=== PATIENT | female | born 1965 | race Two or more races ===

== ENCOUNTER 2017-12-10 12:18 | Emergency (ER) | payer OTHER ==
[~2017-12-10] VITALS: Ht 162.6 cm; Wt 69.4 kg
[~2017-12-10 12:18] MED LIST: KETO10TA2 PO; LEVSIN/SL0.125 MG SL; LEVSIN0.125 MG; ORPH100T PO; PEPCID40 MG PO; SYNTHROID88 MCG; TOPROL XL100 MG; TOPROL XL50 MG
== END 2017-12-10 16:04 | disposition home or self-care (01) ==
LOC: ER 12:18
DX: R10.11 Right upper quadrant pain (principal); M54.89 Other dorsalgia

== ENCOUNTER 2023-01-06 12:16 | Emergency (ER) | payer OTHER ==
[~2023-01-06] VITALS: Ht 162.6 cm; Wt 73.5 kg
[2023-01-06] MEDS ORDERED: LIPITOR20 MG (12:44)
[2023-01-06] MEDS ORDERED: NORFLEX100MG PO (13:39)
[2023-01-06] MEDS ORDERED: CLEOCIN HCL300 MG PO (13:39)
[2023-01-06] MEDS ORDERED: KETO10TA2 PO (13:39)
== END 2023-01-06 13:47 | disposition home or self-care (01) ==
LOC: ER 12:16
DX: K08.89 Other specified disorders of teeth and supporting structures (principal); Z88.8 Allergy status to other drugs, medicaments and biological substances; Z91.013 Allergy to seafood
CPT/HCPCS: 96372; 99283; J1885; J2360

== ENCOUNTER 2023-12-13 13:37 | Emergency (ER) | payer OTHER ==
[~2023-12-13] VITALS: Ht 162.6 cm; Wt 66.7 kg
[~2023-12-13 13:37] MED LIST changes: +CLEOCIN HCL300 MG PO; +LIPITOR20 MG; +NORFLEX100MG PO
[2023-12-13 14:57] LABS: HEMATOCRIT 36.6 % (36.0-45.00); HEMOGLOBIN 12.3 g/dL (12.0-15.00); MEAN CELL VOLUME 85.1 fL (80.00-100.00); MEAN CORPUSCULAR HEMOGLOBIN 28.6 pg (27.00-32.0); MEAN CORPUSCULAR HGB CONC 33.6 g/dl (32.0-36.0); PLATELET COUNT 234 K/uL (150-450); RED CELL DISTRIBUTION WIDTH 13.9 % (11.5-14.5)
[2023-12-13 15:37] LABS: URINE APPEARANCE Clear; URINE BILIRRUBIN Negative (NEGATIVE); URINE BLOOD Negative; URINE COLOR Yellow; URINE GLUCOSE Negative (NEGATIVE); URINE LEUKOCYTE Trace; URINE NITRATE Negative; URINE PROTEIN Negative (NEGATIVE)
[2023-12-13 15:40] LABS: URINE BACTERIA 590.9 uL (0.0-1933); URINE EPITHELIAL CELLS 16.2 uL (0.0-38.8); URINE RBC 3.3 uL (0.0-20.8); URINE WBC 17.7 uL (0.0-23.2)
[2023-12-13 15:49] LABS: ALBUMIN 3.6 gm/dL (3.4-5.0); BILIRUBIN TOTAL 0.59 mg/dL (0.3-1.2); CREATININE SERUM 0.71 mg/dL (0.55-1.02); FREE TRIODOTIRONINE 1.82 pg/ml (2.18-3.98); GFR 84.85; GLOBULINA 3.8 G/DL (2.4-3.5); POTASSIUM 3.75 mEq/L (3.5-5.1); T4 TOTAL 10.53 UG/DL (4.8-13.9); TOTAL PROTEIN 7.4 gm/dL (6.4-8.2)
== END 2023-12-13 16:27 | disposition home or self-care (01) ==
LOC: ER 13:38
PROVIDERS: General Practice
DX: R53.1 Weakness (principal); Z88.8 Allergy status to other drugs, medicaments and biological substances

== ENCOUNTER 2024-06-07 10:20 | Emergency (ER) | payer OTHER ==
[~2024-06-07] VITALS: Ht 160 cm; Wt 63.5 kg
[2024-06-07 10:47] VITALS: BP 127/79; O2SAT 100
[2024-06-07] MEDS ORDERED: DEXAMETHASONE SODIUM PHOSPHATE 4 MG/ML VIAL IM ONE (12:30)
[2024-06-07] MEDS ORDERED: KETOROLAC TROMETHAMINE 60 MG VIAL IM ONE ×2 (12:30→12:34)
[2024-06-07] MEDS ORDERED: DEXAMETHASONE SODIUM PHOSPHATE 4 MG/ML VIAL ONE (12:34)
[2024-06-07] MEDS ORDERED: IBU600 MG PO (13:31)
== END 2024-06-07 14:00 | disposition home or self-care (01) ==
LOC: ER 10:22
DX: R53.81 Other malaise (principal); M54.2 Cervicalgia; I10 Essential (primary) hypertension; E03.8 Other specified hypothyroidism; Z88.6 Allergy status to analgesic agent; Z91.013 Allergy to seafood

== ENCOUNTER 2024-07-01 23:22 | Emergency (ER) | payer OTHER ==
[~2024-07-01] VITALS: Ht 162.6 cm; Wt 63.5 kg
[~2024-07-01 23:22] MED LIST changes: +IBU600 MG PO
[2024-07-01] MEDS ORDERED: NORVASC2.5 MG PO (23:54)
[2024-07-02] MEDS ORDERED: ASPIRIN 325 MG TABLET.EC PO STA (01:11)
[2024-07-02] MEDS ORDERED: 0.9 % SODIUM CHLORIDE 1,000 ML IV ONE (01:15)
[2024-07-02] MEDS ORDERED: ASPIRIN 325 MG TABLET.EC PO ONE (01:22)
[2024-07-02 01:23] LABS: HEMATOCRIT 37.1 % (36.0-45.00); HEMOGLOBIN 12.3 g/dL (12.0-15.00); MEAN CELL VOLUME 82.9 fL (80.00-100.00); MEAN CORPUSCULAR HEMOGLOBIN 27.4 pg (27.00-32.0); MEAN CORPUSCULAR HGB CONC 33.1 g/dl (32.0-36.0); PLATELET COUNT 197 K/uL (150-450); RED BLOOD COUNT 4.47 M/uL (4.00-6.00); RED CELL DISTRIBUTION WIDTH 14.5 % (11.5-14.5)
[2024-07-02 01:40] LABS: INR 0.99; PARTIAL THROMBOPLASTIN TIME 24.7 SECONDS (22.0-34.0); PROTHROMBIN TIME 10.8 SECONDS (9.0-11.5)
[2024-07-02 01:45] LABS: ALBUMIN 3.6 gm/dL (3.4-5.0); BILIRUBIN TOTAL 0.41 mg/dL (0.3-1.2); CREATININE SERUM 0.69 mg/dL (0.55-1.02); GFR 87.38; GLOBULINA 3.7 G/DL (2.4-3.5); POTASSIUM 4.22 mEq/L (3.5-5.1); TOTAL PROTEIN 7.3 gm/dL (6.4-8.2)
[2024-07-02 02:41] LABS: URINE APPEARANCE Clear; URINE BILIRRUBIN Negative (NEGATIVE); URINE BLOOD Negative; URINE COLOR Yellow; URINE GLUCOSE Negative (NEGATIVE); URINE KETONE Negative (NEGATIVE); URINE LEUKOCYTE Trace; URINE NITRATE Negative; URINE PROTEIN Negative (NEGATIVE); URINE UROBILINOGEN 0.2 E.U./dl
[2024-07-02 02:46] LABS: URINE BACTERIA 67.3 uL (0.0-1933); URINE RBC 3.6 uL (0.0-20.8); URINE WBC 3.6 uL (0.0-23.2)
== END 2024-07-02 06:59 ==
LOC: ER 23:22
PROVIDERS: General Practice
DX: R00.2 Palpitations (principal); I10 Essential (primary) hypertension; Z88.6 Allergy status to analgesic agent; Z91.013 Allergy to seafood
CPT/HCPCS: 36415; 71045; 93005; 93041; 96365; 96366; 99283; J7030

== ENCOUNTER 2024-07-30 14:20 | Emergency (ER) | payer OTHER ==
[~2024-07-30] VITALS: Ht 162.6 cm; Wt 62.6 kg
[~2024-07-30 14:20] MED LIST changes: +NORVASC2.5 MG PO
[2024-07-30] MEDS ORDERED: METOCLOPRAMIDE HCL 5 MG/ML VIAL IM STA (17:49)
[2024-07-30] MEDS ORDERED: METOCLOPRAMIDE HCL 5 MG/ML VIAL ONE (17:53)
== END 2024-07-30 18:01 | disposition home or self-care (01) ==
LOC: ER 14:22
DX: R11.0 Nausea (principal); R12 Heartburn; Z91.013 Allergy to seafood; Z88.8 Allergy status to other drugs, medicaments and biological substances
CPT/HCPCS: 96372; 99282; J2765

== ENCOUNTER 2024-10-02 19:33 | Emergency (ER) | payer OTHER ==
[~2024-10-02] VITALS: Ht 162.6 cm; Wt 64.4 kg
[2024-10-02 20:18] VITALS: BP 146/83; O2SAT 99
[2024-10-02] MEDS ORDERED: KETOROLAC TROMETHAMINE 60 MG VIAL IM ONE ×2 (21:57→22:00)
[2024-10-02] MEDS ORDERED: DICLOFENAC SODI75 MG PO (23:11)
== END 2024-10-02 23:18 | disposition home or self-care (01) ==
LOC: ER 19:33
DX: R07.89 Other chest pain (principal); Z88.8 Allergy status to other drugs, medicaments and biological substances; Z91.013 Allergy to seafood; I10 Essential (primary) hypertension
CPT/HCPCS: 71046; 96372; 99283; J1885

== ENCOUNTER 2025-06-08 10:50 | Emergency (ER) | payer OTHER ==
[~2025-06-08] VITALS: Ht 162.6 cm; Wt 66.2 kg
[~2025-06-08 10:50] MED LIST changes: +DICLOFENAC SODI75 MG PO
[2025-06-08 13:01] VITALS: O2SAT 100
[2025-06-08] MEDS ORDERED: FAMOTIDINE/PF 20 MG/2 ML VIAL IV PUSH ONE (16:00)
[2025-06-08] MEDS ORDERED: CLOPIDOGREL BISULFATE 75 MG TABLET PO ONE (16:00)
[2025-06-08] MEDS ORDERED: NIFEDIPINE 30 MG TAB.SA.OSM PO ONE (16:00)
[2025-06-08] MEDS ORDERED: ASPIRIN 325 MG TABLET.EC PO ONE (16:00)
[2025-06-08 16:26] LABS: BASO % 0.3 % (0.1-1.2); EOS # 0.23 (0.04-0.54); EOS % 3.8 % (0.7-7.0); LYMPH # 1.93 (1.18-3.74); LYMPH % 31.8 % (19.3-53.1); MEAN PLATELET VOLUME 12.00 fl (9.4-12.4); MONO # 0.49 (0.24-0.82); MONO % 8.1 % (4.7-12.5); NEUT # 3.39 (1.56-6.13); NEUT % 55.8 % (34.0-71.1); RED CELL DISTRIBUTION WIDTH 14.8 % (11.6-14.4)
[2025-06-08 16:51] LABS: INR 1.0
[2025-06-08 16:56] LABS: BUN CREA RATIO 21.0 (7.0-25.0); CREATININE SERUM 0.57 mg/dL (0.55-1.02); GFR 108.94; GLUCOSE FASTING 122.0 mg/dL (65-100); OSMOLALITY SERUM 282.0 MOSM/KG (275-295)
[2025-06-08] MEDS ORDERED: KETOROLAC TROMETHAMINE 30 MG VIAL IU ONE (17:15)
[2025-06-08] MEDS ORDERED: MEDROLPACK PO (19:59)
[2025-06-08] MEDS ORDERED: CYCLOBENZAPRINE10 MG PO (19:59)
[2025-06-08] MEDS ORDERED: ZIPSOR25 MG PO (19:59)
[2025-06-08 20:05] VITALS: BP 150/85
== END 2025-06-08 20:06 | disposition home or self-care (01) ==
LOC: ER 10:51
PROVIDERS: General Practice
DX: I16.0 Hypertensive urgency (principal); R07.89 Other chest pain; M94.0 Chondrocostal junction syndrome [Tietze]; I10 Essential (primary) hypertension; Z88.8 Allergy status to other drugs, medicaments and biological substances; Z91.013 Allergy to seafood